=== PATIENT | female | born 1995 | race Caucasian/White ===

== ENCOUNTER 2019-10-16 09:35 | Inpatient (IN) ==
--- NOTE | 2019-10-16 09:43 | History & Physical Report ---
Date of Service October 16, 2019 Assessment & Plan (1) Supervision of normal intrauterine in multigravida: Yadira is a 24 yo at 40w with PROM at 40w - patient prefers unmedicated delivery - despite provider recommendation of starting pitocin for contraction augmentation in the setting of PROM, patient declines. She requests waiting 1-2 hours to assess labor progression. - patient intends to delivery without analgesia - anticipate History of Present Illness Primary Care Provider: NO PCP Yadira is a 24 yo at 40w, dated via 1st trimester U/S, who prese nts to labor and delivery on her STEPHIE for evaluation of labor. Yadira had her membranes stripped yesterday in the office, after which she began experiencing irregular contractions. Contractions began occurring regularly, every 6-8 minutes at 7am this morning, but she has not felt any since SROM, which occurred at 8:30am. She is feeling movement. No vaginal bleeding. There have been no complications with this . Only medication is PNV. Labs Blood type: A- Antibody Screen: positive A H.8 Hct: 34.3 Plt: 204 Rubella: immune VDRL/RPR: non-reactive Gonorrhea: neg Chlamydia: neg GBS: neg HIV: neg HbsAq: neg Glucose Tolerance x2: normal Allergies Allergy/AdvReac Type Severity Reaction Status Date / Time Sulfa (Sulfonamide Allergy Mild Unknown Verified 10/16/19 09:49 Antibiotics) Home Medications Home Medications Medication Instructions Recorded Confirmed Type PNV cmb#95-ferrous fumarate-FA 1 tab PO DAILY 10/06/19 10/16/19 History [] Patient History Medical History Anemia during Endometriosis Migraines Ovarian cyst Screening, , for anatomic survey (Inactive) Weakness Surgical History No significant past surgical history Family History Grandmother (Maternal) Diabetes Breast cancer Malignant neoplasm of cervix Ovarian cancer Grandfather (Maternal) Diabetes Mother Malignant neoplasm of cervix Osteoporosis Brother Thyroid disease Social History Preferred Language: Occitan Communication Ability: Effective Buttonhole Marker Required: No Beliefs That Will Affect Care: None marital status: Single Current Living Situation: Spouse Current Living Situation Comment: 2 stepdaughters; 1 son; and significant other current occupation: stay at home mom Other Information That Helps Us Care for You: No Feels Safe at Home: Yes Safety Concerns: Feels Safe At This Time Smoking Status: Never smoker Second Hand Exposure: No ; Hx Alcohol Use: No Hx Substance Use: No Review of Systems no fever, no chills and no sweats no worsening vision no cough and no dyspnea no chest pain, no palpitations and no calf pain no nausea, no vomiting, no constipation and no diarrhea/loose stools no dysuria and no urinary frequency Physical Exam Constitutional: WD/WN, vitals as above Eyes: + anicteric sclerae Neck: normal visual inspection Respiratory: normal respiratory effort, lungs clear to auscultation does not use accessory muscles Auscultation: no crackles, no rales, no wheezes and no pleural rub Cardiovascular: Rate/Rhythm: regular rate and regular rhythm Heart Sounds: normal S1 and normal S2; no gallop, no murmur and no cardiac rub Gastrointestinal (Abdomen): Gravid. Uterus at term; + heart tones; vertex position. EFW 7lbs Neurologic: awake; no focal motor deficits Psychiatric: A+Ox3, euthymic affect Genitourinary: OB Exam Monitor Tracing: + external FHT monitor used Cervical Exam: 5cm/ 75% effacement/ -2 station, soft and anterior Monitoring External Monitor Baseline HR: 140 bpm Variability: moderate Accelerations: 2 in 20 min Decelerations: none Category I Tocodynamometer Contractions: none present at time of admission Resident Activity Tracking Resident Involvement: Resident Care Provided Care Provided: OB Delivery
[2019-10-16] MEDS ORDERED: OXYTOCIN 30 UNITS/500 ML BAG IV PRN ×2 (10:28→16:00)
[2019-10-16] MEDS ORDERED: LACTATED RINGER'S 1,000 ML IV PRN (10:28)
--- NOTE | 2019-10-16 10:28 | Labor Progress Brief Note ---
Date of Service October 16, 2019 Subjective Patient with PROM at home this morning. No obvious contractions on monitor and patient not acutely uncomfortable. Fluid is clear. Assessment & Plan (1) PROM (premature rupture of membranes): Rupture confirmed, no active contractions. There is some cervical change from yesterday in office. Patient does NOT want pitocin augmentation despite being counseled on my recommendation that we begin that. She prefers unmedicated . Requests at least 1-2 hours of observation for change before starting pitocin. Physical Exam Physical Exam: /-2 SROM copious clear fluid confirmed, nitrazine positive and chux soaked. Results & Data Vital Signs (Past 12 Hours) Vital Signs Temp Pulse Resp BP 10/16/19 09:43 99.3 F 95 H 20 126/80 Coding Level of Care Code None Diagnoses PROM (premature rupture of membranes) O42.90
[2019-10-16 10:56] LABS: Hematocrit (blood only) 34.3 % (37-47); Hemoglobin 10.8 g/dL (12.0-16.0); Mean Corpuscular Hemoglobin 24.2 pg (25-34); Mean Corpuscular Volume 76.7 fL (80-100); Mean Platelet Volume 11.2 fL (7.4-10.4); Platelet Count 204 K/uL (130-400); RDW Coefficient of Variation 13.6 % (11.5-14.5); RDW Standard Deviation 38.1 fL (36.4-46.3); Red Blood Count 4.47 M/uL (4.2-5.4); White Blood Count 8.52 K/uL (4.8-10.8)
[2019-10-16 10:57] LABS: Mean Corpuscular Hgb Conc 31.5 g/dL (32-36)
--- NOTE | 2019-10-16 15:41 | Delivery Summary ---
Vaginal Delivery Summary Date of Service October 16, 2019 The patient dilated to complete and pushed to deliver a viable female Apg ars 8 and 9 via over intact perineum. Mouth and nose bulb suctioned at perineum. Shoulders and body delivered with ease. was vigorous and crying at . Cord clamped at 30 seconds of life and to maternal abdomen where the cord was then doubly clamped and cut. Placenta delivered spontaneously and intact, three-vessel cord. Hemostasis achieved with dilute pitocin and uterine massage. Cervix and sulci intact. EBL 300 cc. Mother and baby stable in recovery.
[2019-10-16] MEDS ORDERED: IBUPROFEN 600 MG TAB PO ONE (15:47)
[2019-10-16] MEDS ORDERED: DIPHTHERIA/TETANUS/PERTUSSIS 0.5 ML SYR/VIAL IM ONE (16:00)
[2019-10-16] MEDS ORDERED: BENZOCAINE 20% AER SPR 82.5 GM CAN EXT PRN (16:00)
[2019-10-16] MEDS ORDERED: ACETAMINOPHEN 325 MG TAB PO PRN (16:00)
[2019-10-16] MEDS ORDERED: SUPERCREAM 0.870% 15 GM JAR EXT PRN (16:00)
[2019-10-16] MEDS ORDERED: HYDROCORTISONE ACETATE 25 MG SUPP PR PRN (16:00)
[2019-10-16] MEDS ORDERED: OXYCODONE/ACETAMINOPHEN 5mg/325mg TAB PO PRN (16:00)
[2019-10-16] MEDS: DOCUSATE SODIUM 100 MG CAP PO SCH (20:26)
[2019-10-16] MEDS: IBUPROFEN 600 MG TAB PO PRN (20:26)
[2019-10-17] MEDS: IBUPROFEN 600 MG TAB PO PRN ×3 (00:50→09:20)
[2019-10-17 06:00] LABS: Hematocrit (blood only) 32.9 % (37-47); Hemoglobin 10.4 g/dL (12.0-16.0); Mean Corpuscular Hemoglobin 23.9 pg (25-34); Mean Corpuscular Hgb Conc 31.6 g/dL (32-36); Mean Corpuscular Volume 75.5 fL (80-100); Mean Platelet Volume 10.7 fL (7.4-10.4); Platelet Count 202 K/uL (130-400); RDW Coefficient of Variation 13.6 % (11.5-14.5); RDW Standard Deviation 37.2 fL (36.4-46.3); Red Blood Count 4.36 M/uL (4.2-5.4); White Blood Count 13.13 K/uL (4.8-10.8)
--- NOTE | 2019-10-17 06:22 | Obstetrical Progress Note ---
Date of Service October 17, 2019 Assessment & Plan (1) Status post vaginal delivery: Yadira is a 24 yo on PPD1 after at 40w - GBS -, Blood Type A-, Rubella immune - baby's blood type A+; rhogam ordered - Vitals reviewed and WNL - Hemoglobin reviewed: 10.8 on admission, down to 10.4 (2/6) - patient is doing clinically well continue routine post care - After discharge will have [address] Durbin. Supervising Physician Co-Signing Physician Notes I have reviewed the resident's note and examined the patient myself, and agree with the note above. Subjective Ambulation: ambulating normally Voiding: no voiding problems Passing Gas:: Yes Diet Tolerance:: regular diet Lochia:: moderate Feeding Type:: breast feeding Review of Systems Constitutional: no fever, no chills and no sweats Eyes: no worsening vision Respiratory: no cough and no dyspnea Cardiovascular: no chest pain, no palpitations, no edema and no calf pain Gastrointestinal: no nausea and no vomiting Genitourinary: no dysuria and no urinary frequency Neurologic: no headache(s) Physical Exam Constitutional: WD/WN, vitals as above no acute distress Respiratory: normal respiratory effort, lungs clear to auscultation does not use accessory muscles Auscultation: no crackles, no rales, no rhonchi, no wheezes and no pleural rub Cardiovascular: Rate/Rhythm: regular rate and regular rhythm Heart Sounds: normal S1 and normal S2; no gallop, no murmur and no cardiac rub Extremities: no calf tenderness and no pedal edema Gastrointestinal (Abdomen): Inspection/Auscultation: normal bowel sounds; abdomen not distended Percussion/Palpation: abdomen soft Genitourinary: Uterus: fundus firm, palpable 1 cm below the umbilicus Results & Data Vital Signs (Past 12 Hours) Vital Signs Temp Pulse Pulse Resp BP BP 10/17/19 05:00 36.5 C 92 H 18 119/82 10/17/19 00:25 36.9 C 81 18 110/71 10/16/19 19:15 37 C 85 18 116/75 10/16/19 18:28 85 118/62 Resident Activity Tracking Resident Involvement: Resident Care Provided Care Provided: OB Delivery
[2019-10-17] MEDS: DOCUSATE SODIUM 100 MG CAP PO SCH (07:40)
[2019-10-17] MEDS ORDERED: PRENATAL VITAMIN 1 TAB PO SCH (08:00)
--- NOTE | 2019-10-17 14:50 | Obstetrical Progress Note ---
Date of Service October 17, 2019 Assessment & Plan (1) Status post vaginal delivery: order placed. asked nursing to let me know if pt has any questions. pp instructions readied. f/u 6wk pp check. Subjective nursing approached me and states pt wanted to go home at 24hr but no order in. Physical Exam Constitutional: WD/WN, vitals as above Results & Data Vital Signs (Past 12 Hours) Vital Signs Temp Pulse Pulse Resp BP BP Pulse Ox 10/17/19 12:30 98.1 F 86 18 119/79 98 10/17/19 10:39 98.4 F 88 18 117/79 98 10/17/19 07:40 98.4 F 88 18 117/79 98 10/17/19 05:00 97.7 F 92 H 18 119/82 PG Care Time/CCT Total # of Minutes Spent Total Time Spent with Patient: Total time spent is greater than 50% in coordination of care (as documented) at patient's floor/unit and/or counseling patient: Coding Level of Care Code None Diagnoses Status post vaginal delivery
== END 2019-10-17 17:15 | disposition home or self-care (01) | DRG 807 ==
LOC: OPB 09:35 → 4S1 09:37 → 4S2 19:14

== ENCOUNTER 2020-11-26 06:01 | Inpatient (IN) ==
[2020-11-26] MEDS ORDERED: LACTATED RINGER'S 1,000 ML IV PRN (06:07)
[2020-11-26 06:26] LABS: Hematocrit (blood only) 39.6 % (37-47); Hemoglobin 12.9 g/dL (12.0-16.0); Mean Corpuscular Hemoglobin 25.8 pg (25-34); Mean Corpuscular Hgb Conc 32.6 g/dL (32-36); Mean Corpuscular Volume 79.2 fL (80-100); Mean Platelet Volume 11.1 fL (7.4-10.4); Platelet Count 195 K/uL (130-400); RDW Coefficient of Variation 12.9 % (11.5-14.5); RDW Standard Deviation 36.8 fL (36.4-46.3); White Blood Count 8.74 K/uL (4.8-10.8)
--- NOTE | 2020-11-26 06:46 | History & Physical Report ---
Date of Service November 26, 2020 Assessment & Plan (1) Supervision of normal intrauterine in multigravida: 25yo at 39.6 weeks GA. Labor 1. Fetus: Cat 1 2. Labor: Active. AROM clr 3. GBS negative 4. Rh negative (2) Need for rhogam due to Rh negative mother: Admission and Anticipated Discharge Date Admission Date: November 26, 2020 History of Present Illness Primary Care Provider: NO PCP 25yo at 39.6 weeks GA. Presents in labor. Denies VB, LOF. Good FM. complicated by Rh negative OB Labs: Blood Type A Negative 08/27/20 Antibody Screen NEGATIVE 11/04/20 Hemoglobin 11.8 g/dL (12.0-16.0) L 10/09/20 Hematocrit 36.8 % (37-47) L 10/09/20 Mean Corpuscular Volume 80.6 fL (80-100) 09/01/20 Platelet Count 138 K/uL (130-400) 09/01/20 Rubella IgG Antibody Immune (Immune) 05/19/20 Rapid Plasma Reagin Nonreactive (Nonreactive) 05/19/20 Hepatitis B Surface Antigen Neg (Neg) 05/19/20 HIV (1&2) Ab and P24 Ag, 4th Gener Neg (Neg) 05/19/20 Glucose 1 Hour 50 gm Load 84 mg/dl (70-130) 06/16/20 Maternal Serum Alpha Fetoprotein 26.4 ng/mL 06/16/20 OB Optional Labs: Chlamydia trachomatis RNA NOT DETECTED (NOT DETECTED) 04/20/20 Neisseria gonorrhoeae RNA NOT DETECTED (NOT DETECTED) 04/20/20 Alpha Fetoprotein Triple Screen SEE NOTE 06/16/20 Labs Reviewed: (-) CF/SMA/cfDNA--TJH afp neg Allergies Allergy/AdvReac Type Severity Reaction Status Date / Time Sulfa (Sulfonamide Allergy Mild Unknown Verified 11/25/20 12:06 Antibiotics) Home Medications Medication Instructions Recorded Confirmed Type prenat.vits,veronica,kbq-addt-aciaf 1 tab PO DAILY 11/25/20 11/26/20 History [ Vitamin] Patient History Medical History Anemia during Endometriosis Migraines Ovarian cyst PROM (premature rupture of membranes) Screening, , for anatomic survey Supervision of normal intrauterine in multigravida Weakness Surgical History No significant past surgical history Status post vaginal delivery Family History Grandmother (Maternal) Diabetes Breast cancer Malignant neoplasm of cervix Ovarian cancer Grandfather (Maternal) Diabetes Mother Malignant neoplasm of cervix Osteoporosis Brother Thyroid disease Social History (Updated 11/25/20 @ 14:15 by Varsha Leon, CHRISTI) Smoking Status: Never smoker Second Hand Exposure: No; Hx Alcohol Use: No Hx Substance Use: No Preferred Language: Turkish Communication Ability: Effective Visual Impairment: No Limitations Hearing Ability: Normal Ground Instructor Basic Required: Voice Beliefs That Will Affect Care: None marital status: Single marital status details: valeriy Sánchez ([phone] Current Living Situation: Significant Other Current Living Situation Comment: lives with fob, 2 children, 2 step daughters, no pets current occupational status: unemployed current occupation: stay at home mom Other Information That Helps Us Care for You: No Feels Safe at Home: Yes Safety Concerns: Feels Safe At This Time Assistive Devices: None Physical Exam Constitutional: WD/WN, vitals as above Psychiatric: A+Ox3, euthymic affect Genitourinary: OB Exam Abdomen: + vertex Manual OB Exam: + cervical dilation 8 cm, + cervical effacement 100% and + station 0 OB Exam Monitor Tracing: + external FHT monitor used, + external uterine monitor used, + category I and + normal FHT variability; no early decelerations present, no late decelerations present and no variable decelerations Results & Data ([facility]) Vital Signs (Past 12 Hours) Vital Signs Temp Pulse Resp BP 11/26/20 06:07 36.5 C 37 L 18 163/96 H Coding Level of Care Code None Diagnoses Supervision of normal intrauterine in multigravida Z34.80 Need for rhogam due to Rh negative mother Z29.13
[2020-11-26] MEDS: OXYTOCIN 30 UNITS/500 ML BAG IV PRN ×2 (07:40→08:15)
[2020-11-26] MEDS ORDERED: IBUPROFEN 600 MG TAB PO ONE (08:12)
[2020-11-26] MEDS ORDERED: ACETAMINOPHEN 325 MG TAB PO PRN (09:15)
[2020-11-26] MEDS ORDERED: oxyCODONE/ACETAMINOPHEN 5mg/325mg TAB PO PRN (09:15)
--- NOTE | 2020-11-26 10:22 | Delivery Summary ---
DATE OF OPERATION: 11/26/2020 PROCEDURE: Normal spontaneous vaginal delivery. SURGEON: Rodney Golden MD. ESTIMATED BLOOD LOSS: 200 mL. DRAINS: None. FLUIDS: Continuous lactated ringer. URINE OUTPUT: Not measured. COMPLICATIONS: None. FINDINGS: Viable male with weight pending and Apgars of 8 and 9 at 1 and 5 minutes respectively. INDICATIONS: The patient presented in active labor at approximately 8 cm dilated. The patient progressed in labor quickly. She underwent artificial rupture of membranes for clear fluid and progressed to complete-complete +2 station with a strong urge to push. DESCRIPTION OF PROCEDURE: The patient progressed to 10 cm dilated, 100% effaced, +2 station, pushed over intact perineum without anesthesia and delivered a viable male infant with weight and Apgars as noted above. Head of delivered in an BIRD position, left transverse. No nuchal cord was noted. Body and shoulders quickly followed. was noted to be vigorous upon delivery and 1-minute delayed cord clamping was initiated. Cord was double clamped and cut. remained on maternal abdomen. Cord blood was obtained. Attention was then turned to the delivery of the placenta, which was delivered intact, 3-vessel cord, gentle cord traction. On inspection of perineum, vagina, and cervix, there was noted to be no lacerations. Needle, sponge and instrument counts were correct at the completion of the case. I attest to the content of the Intraoperative Record and any orders documented therein. Any exception s are noted below.
[2020-11-26] MEDS ORDERED: BENZOCAINE 20% AER SPR 82.5 GM CAN EXT PRN (10:45)
[2020-11-26] MEDS ORDERED: SUPERCREAM 0.870% 15 GM JAR EXT PRN (10:45)
[2020-11-26] MEDS ORDERED: DIPHTHERIA/TETANUS/PERTUSSIS 0.5 ML SYR/VIAL IM ONE (10:45)
[2020-11-26] MEDS ORDERED: OXYTOCIN 30 UNITS/500 ML BAG IV PRN (10:45)
[2020-11-26] MEDS ORDERED: HYDROCORTISONE ACETATE 25 MG SUPP PR PRN (10:45)
[2020-11-26] MEDS: IBUPROFEN 600 MG TAB PO PRN ×2 (12:50→19:05)
[2020-11-26] MEDS: DOCUSATE SODIUM 100 MG CAP PO SCH (20:30)
[2020-11-27] MEDS: IBUPROFEN 600 MG TAB PO PRN ×3 (03:13→12:14)
--- NOTE | 2020-11-27 05:16 | Obstetrical Progress Note ---
Date of Service <Duane Beal MD - Last Filed: 11/27/20 07:29> November 27, 2020 Assessment & Plan <Duane Beal MD - Last Filed: 11/27/20 07:29> (1) : - PNL: Rh neg, RI, GBS neg, COVID neg - Feels well today. Eating well, voiding well, ambulating well - Pain well controlled with ibuprofen 600mg Q4H PRN - Routine care -- OOB, ambulation, diet progression as tolerated - After discharge will have 6 week follow-up with Dr. Golden Subjective <Duane Beal MD - Last Filed: 11/27/20 07:29> Yadira is a 25 y/o female who is PPD #1 following at 39+ weeks. She reports feeling well overall this morning. Light abdominal cramping and 2/10 pain well managed on analgesics. Voiding well. Tolerating meals overnight without difficulty. Patient has been able to ambulate some. Has persistent lochia with some improvement this morning. Currently . Review of Systems Denies fever or chills. Denies shortness of breath or cough. Denies chest pain. Denies breast pain. Denies dysuria. Denies leg pain or leg swelling. Denies headache or changes in vision. Physical Exam <Duane Beal MD - Last Filed: 11/27/20 07:29> General: Alert, oriented. No acute distress. Cardiac: Regular rate and rhythm. No murmurs. Respiratory: Clear to auscultation bilaterally a/p, no wheezes/rales/rhonchi. No increased work of breathing. Symmetrical chest rise. No respiratory distress. Abdomen: Soft, nontender, nondistended. Bowel sounds present. Uterus: Uterine fundus firm, palpable ~1 cm below umbilicus. Lower Extremities: No lower extremity edema or swelling. No deep calf pain. Kishan's negative bilaterally. Results & Data ([facility]) <Duane Beal MD - Last Filed: 11/27/20 07:29> Vital Signs (Past 12 Hours) Vital Signs Temp Pulse Resp BP Pulse Ox 11/27/20 00:00 36.9 C 82 18 105/66 11/26/20 18:55 36.7 C 80 18 123/76 98 <Hoda Ramirez MD, FACOG - Last Filed: 11/27/20 07:30> Co-Signing Physician Notes Resident Physician Supervision Note: I interviewed and examined the patient. Discussed with Dr. Dixon and agree with findings and plan as documented in the note. Any exceptions or clarifications are listed here: Doing well. PLan d/c later today. Instructions given. Documented By: Hoda Ramirez MD, FACOG Resident Activity Tracking <Duane Beal MD - Last Filed: 11/27/20 07:29> Resident Involvement: Resident Care Provided Care Provided: OB Delivery
[2020-11-27 06:08] LABS: Hematocrit (blood only) 34.3 % (37-47); Hemoglobin 11.2 g/dL (12.0-16.0); Mean Corpuscular Hemoglobin 25.9 pg (25-34); Mean Corpuscular Hgb Conc 32.7 g/dL (32-36); Mean Corpuscular Volume 79.2 fL (80-100); Mean Platelet Volume 11.1 fL (7.4-10.4); Platelet Count 173 K/uL (130-400); RDW Coefficient of Variation 13.1 % (11.5-14.5); RDW Standard Deviation 37.7 fL (36.4-46.3); Red Blood Count 4.33 M/uL (4.2-5.4); White Blood Count 9.35 K/uL (4.8-10.8)
[2020-11-27] MEDS ORDERED: PRENATAL VITAMIN 1 TAB PO SCH (08:00)
[2020-11-27] MEDS: DOCUSATE SODIUM 100 MG CAP PO SCH (08:16)
[2020-11-27] MEDS ORDERED: bisacodyL 5 MG TABEC PO SCH (20:00)
[2020-11-28] MEDS ORDERED: bisacodyL 10 MG SUPP PR PRN (08:00)
== END 2020-11-27 13:17 | disposition home or self-care (01) | DRG 807 ==
LOC: OPB 06:01 → 4S1 06:02 → 4S2 11:09